=== PATIENT | male | born 1965 ===

== ENCOUNTER 2018-10-26 14:01 | Emergency (ER) | payer SELFPAY ==
--- NOTE | 2018-10-26 14:33 | C.PDOC ---
History Of Present Illness 53 year old male presents to the ED for evaluation of persistent right shoulder pain and stiffness for one month. Patient states pain is s/p recurrent shoulder dislocation, since then unable to have full movement of the area. Patient has history of prior surgical repair to right shoulder due to dislocation. He reports minimal improvement with NSAIDS and home physical therapy. PERSIST R SHOULDER PAIN, STIFFNESS X 1 MO. SP RECUR SHOULDER DISLOCATION, SINCE THEM UNABLE TO HAVE FULL MOVEMENT. HO PRIOR SURG REPAIR R SHOULDER DUE TO DISLOCATION. MIN IMPROVE W NSAIDS AND HOME P.T. EXAM NAD EXT R SHOULDER <60 FLEX; FULL INT/EXT ROTATION; ABDUCTION @ 45. NO DEFORM NEURO INTACT SKIN NEG Time Seen by Provider: 10/26/18 14:23 Chief Complaint (Nursing): Upper Extremity Problem/Injury History Per: Patient History/Exam Limitations: no limitations Onset/Duration Of Symptoms: Hrs, Persistent Current Symptoms Are (Timing): Still Present Quality: "Pain" Additional History Per: Patient Past Medical History Reviewed: Historical Data, Nursing Documentation, Vital Signs Vital Signs: Last Vital Signs Temp 98.4 F 10/26/18 14:15 Pulse 88 10/26/18 14:15 Resp 16 10/26/18 14:15 BP 138/86 10/26/18 14:15 Pulse Ox 100 10/26/18 14:15 - Medical History PMH: No Chronic Diseases Surgical History: No Surg Hx Family History: States: Unknown Family Hx - Social History Hx Tobacco Use: No Hx Alcohol Use: Yes (on occasion ) Hx Substance Use: No - Immunization History Hx Tetanus Toxoid Vaccination: Yes Hx Influenza Vaccination: No Hx Pneumococcal Vaccination: No Review Of Systems Musculoskeletal: Positive for: Shoulder Pain (right ) Neurological: Negative for: Weakness, Numbness Physical Exam - Physical Exam Appears: Non-toxic, No Acute Distress Skin: Normal Color, Warm, Dry, No Ecchymosis Extremity: Capillary Refill (less than 2 seconds ), No Deformity, Other (right shoulder: <60 flexion, full internal and external rotation. abduction at 45. ) Neurological/Psych: Oriented x3, Normal Speech, Normal Cognition, Normal Motor, Normal Sensation ED Course And Treatment O2 Sat by Pulse Oximetry: 100 (on RA) Pulse Ox Interpretation: Normal Disposition Counseled Patient/Family Regarding: Diagnosis, Need For Followup - Disposition Referrals: [facility] [Outside] [facility] [Outside] Disposition: HOME/ ROUTINE Disposition Time: 14:32 Condition: GOOD Additional Instructions: FOLLOW UP IN ORTHOPEDIC CLINIC FOR FURTHER EVALUATION. Instructions: Rotator Cuff Injury (DC) Forms: [facility] (Hebrew) - Clinical Impression Clinical Impression: Rotator cuff arthropathy of left shoulder - Scribe Statement The provider has reviewed the documentation as recorded by the Scribe (Edda Puri) Provider Attestation: All medical record entries made by the Scribe were at my direction and personally dictated by me. I have reviewed the chart and agree that the record accurately reflects my personal performance of the history, physical exam, medical decision making, and the department course for this patient. I have also personally directed, reviewed, and agree with the discharge instructions and disposition.
[2018-10-26 14:37] VITALS: BP 138/86; PULSE 88; RESP 16; TEMP 98.4; O2SAT 100; BMI 26.5
== END 2018-10-26 14:45 | disposition home or self-care (01) ==
LOC: C.ER 14:01
DX: M12.812 Other specific arthropathies, not elsewhere classified, left shoulder (principal)